=== PATIENT | male | born 1965 | race Caucasian/White ===

== ENCOUNTER → 2020-10-13 | Outpatient (CLI) | payer OTHER ==
[~2020-10-13] MED LIST: BENA20TA54 PO; CELE200C PO; FERROUS SULFATE PO; HYDR25TA6 PO; SERT100T PO; VITA20002 PO; turmeric PO
[2020-10-13 10:22] LABS: BASOPHILS % (AUTO) 1 % (0-1); EOSINOPHILS % (AUTO) 1 % (1-7); LYMPHOCYTES % (AUTO) 24 % (22-44); MEAN CORPUSCULAR HEMOGLOBIN 33.9 pg (27.5-34.5); MEAN CORPUSCULAR HGB CONC 34.3 g/dL (33.2-36.2); MEAN PLATELET VOLUME 6.9 fL (7.4-10.4); MONOCYTES % (AUTO) 10 % (2-9); NEUTROPHILS % (AUTO) 64 % (42-75); PLATELET COUNT 252 x10^3/uL (130-400); RED BLOOD COUNT 4.89 x10^6/uL (4.38-5.82); RED CELL DISTRIBUTION WIDTH 13.6 % (9.4-14.8)
[2020-10-13 10:23] LABS: MD NO
[2020-10-13 10:28] LABS: INTERNATIONAL NORMALIZED RATIO 1.05 (0.93-1.1); PROTHROMBIN TIME 11.1 Seconds (9.6-11.5)
[2020-10-13 10:29] LABS: ALANINE AMINOTRANSFERASE 29 U/L (12-78); ANION GAP 4 mmol/L (5-15); CALCIUM 8.8 mg/dL (8.5-10.1); CHLORIDE 108 mmol/L (98-107); CREATININE 0.93 mg/dL (0.7-1.3)
[2020-10-13 10:31] LABS: ALKALINE PHOSPHATASE 173 U/L (45-117); BILIRUBIN,TOTAL 0.6 mg/dL (0.2-1.0); TOTAL PROTEIN 7.6 g/dL (6.4-8.2)
== END | disposition home or self-care (01) ==
LOC: STAR 09:25
PROVIDERS: ATTEND Neurological Surgery
DX: Z01.818 Encounter for other preprocedural examination (principal); M71.30 Other bursal cyst, unspecified site; M51.36 Other intervertebral disc degeneration, lumbar region; I45.2 Bifascicular block; Z20.828 Contact with and (suspected) exposure to other viral communicable diseases
CPT/HCPCS: 71046; 80053; 85025; 85610; 85730; 87635; 93005

== ENCOUNTER 2020-10-19 11:44 | Day surgery (SDC) | payer OTHER ==
[~2020-10-19] VITALS: Ht 180.3 cm; Wt 89.9 kg
[~2020-10-19 11:44] MED LIST changes: +BACITRACIN 50,000 UNIT ONE; +BUPIVACAINE/PF 0.25% ONE; +EPINEPHRINE 1 MG/ML, 1ML ONE; +THROMBIN 20,000 UNIT VIAL TP ONE
[2020-10-19 12:24] VITALS: BP 133/82
[2020-10-19] MEDS ORDERED: MIDAZOLAM 1 MG/ML, 2ML ONE (12:26)
[2020-10-19] MEDS ORDERED: FENTANYL PF 250 MCG/5ML ONE (12:26)
[2020-10-19] MEDS ORDERED: CHLORHEXIDINE 15 ML UDC MM ONE (12:30)
[2020-10-19] MEDS ORDERED: LACTATED RINGERS 1,000 ML IV SCH (12:30)
[2020-10-19] MEDS ORDERED: ONDANSETRON 2MG/ML, 2ML ONE (13:51)
[2020-10-19] MEDS ORDERED: CEFAZOLIN 1,000 MG ONE (13:51)
[2020-10-19] MEDS ORDERED: DEXAMETHASONE 4 MG/ML, 1ML ONE (13:51)
[2020-10-19] MEDS ORDERED: SUCCINYLCHOLINE 20 MG/ML, 10ML ONE (13:51)
[2020-10-19] MEDS ORDERED: PROPOFOL 10 MG/ML, 20ML ONE (13:51)
[2020-10-19] MEDS ORDERED: KETOROLAC 30 MG/1 ML ONE (15:19)
[2020-10-19] MEDS ORDERED: OXYcodone 5 MG/5 ML ORAL.SOL UDC ONE (15:19)
[2020-10-19] MEDS ORDERED: HYDROmorphone 1 MG/ML, 1ML INJ ONE (15:19)
[2020-10-19] MEDS ORDERED: FENTANYL PF 100 MCG/2ML ONE (15:19)
[2020-10-19] MEDS: FENTANYL PF 100 MCG/2ML IV PRN ×2 (15:20→15:34)
[2020-10-19] MEDS: HYDROmorphone 1 MG/ML, 1ML INJ IVPush PRN ×2 (15:26→15:38)
[2020-10-19] MEDS ORDERED: DIAZEPAM 5 MG/ML, 2ML IVPush PRN (15:30)
[2020-10-19] MEDS ORDERED: METHOCARBAMOL 1,000 MG in DEXTROSE 5% 100 ML IV PRN (15:30)
[2020-10-19] MEDS ORDERED: OXYcodone 5 MG/5 ML ORAL.SOL UDC PO PRN (15:30)
[2020-10-19] MEDS ORDERED: LABETALOL 5MG/ML, 20ML IV PRN (15:30)
[2020-10-19] MEDS ORDERED: PROMETHAZINE 25 MG/ML, 1ML IVPush PRN (15:30)
[2020-10-19] MEDS ORDERED: ONDANSETRON 2MG/ML, 2ML IVPush PRN (15:30)
[2020-10-19] MEDS ORDERED: hydrALAzine 20 MG/ML, 1ML IV PRN (15:30)
[2020-10-19] MEDS ORDERED: MEPERIDINE/PF 25MG/0.5ML IVPush PRN (15:30)
[2020-10-19] MEDS ORDERED: KETOROLAC 30 MG/1 ML IM ONE (16:00)
[2020-10-19] MEDS ORDERED: SCOPOLAMINE 1MG PATCH TD ONE ×2 (16:07→16:30)
[2020-10-19] MEDS ORDERED: METOCLOPRAMIDE 5 MG/ML, 2ML ONE (16:07)
[2020-10-19] MEDS ORDERED: METOCLOPRAMIDE 5 MG/ML, 2ML IVPush ONE (16:30)
== END 2020-10-19 18:15 | disposition home or self-care (01) ==
LOC: OUT 11:44 → EDSTATUS 16:30 → OUT 18:15
PROVIDERS: ATTEND Neurological Surgery
DX: M48.061 Spinal stenosis, lumbar region without neurogenic claudication (principal); M71.38 Other bursal cyst, other site; M51.16 Intervertebral disc disorders with radiculopathy, lumbar region; M41.86 Other forms of scoliosis, lumbar region; M43.16 Spondylolisthesis, lumbar region; M54.2 Cervicalgia; Z79.899 Other long term (current) drug therapy
CPT/HCPCS: 63030; 63267; 72100; 95938; 95941; J0171; J0330; J0690; J1100; J1170; J1885; J2250; J2405; J2704; J2765; J2800; J3010; J7120